=== PATIENT | female | born 1955 | race African-American/Black ===

== ENCOUNTER 2016-06-29 12:39 | Emergency (ER) | payer MEDICARE, MEDICAID ==
[~2016-06-29] VITALS: Ht 160 cm; Wt 78.5 kg
[~2016-06-29 12:39] MED LIST: ACIDOPHILUS1 EAC6 PO; AMBIEN10 MG ORAL; AMBIEN5 MG PO; ATARAX; CARAFATE1 G1 ORAL; DILAUDID4 MG ORAL; GABAPENTIN400 MG ORAL; GUAIFENESIN-CO118 M1 ORAL; HYDRALAZINE HCL50 MG PO; HYDROMORPHONE HC4 M1 PO; LEVOTHYROXINE25 MCG ORAL; LIDOCAINE GEL TOPIC; LORAZEPAM; NIACIN PO; NITROSTAT0.4 M1 SL; NKM; NORCO 10/3251 EA ORAL; OMEPRAZOLE20 M3 PO; OMEPRAZOLE40 M1 ORAL; OXYCODONE; OXYCONTIN; OXYCONTIN10 MG ORAL; PHENERGAN6.25 MG/5 ORAL; SERTRALINE HCL100 MG PO; SILVADENE20 GM TOPIC; SUCRALFATE1 GM PO; VENTOLIN HFA18 GM INH; VITAMIN B COMP1 EAC5 PO; VITAMIN D PO; ZOFRAN4 MG ORAL; ZOLOFT; ZYPREXA10 MG ORAL
[2016-06-29 13:06] VITALS: BP 112/62
[2016-06-29] MEDS ORDERED: LORazepam 1mg tab ORAL ONE (13:30)
[2016-06-29] MEDS ORDERED: Ondansetron ODT 8mg tab ORAL ONE (13:30)
[2016-06-29] MEDS ORDERED: DiphenhydrAMINE 50mg/ml Inj IVP ONE (14:00)
[2016-06-29] MEDS ORDERED: Metoclopramide 10mg/2ml Inj IVP ONE (14:00)
[2016-06-29 15:03] LABS: MEAN CORPUSCULAR HGB CONC 31.5 G/DL (32.0-36.0); MEAN CORPUSCULAR VOLUME 92 FL (80-99); MEAN PLATELET VOLUME 7.9 FL (6.5-10.1); PLATELET COUNT 222 K/UL (150-450); RED BLOOD COUNT 4.82 M/UL (4.20-5.40); RED CELL DISTRIBUTION WIDTH 11.6 % (11.6-14.8); WHITE BLOOD COUNT 4.2 K/UL (4.8-10.8)
--- NOTE | 2016-06-29 15:11 | Emergency Room Report ---
History of Present Illness General Chief Complaint: Headache Source: Patient Present Illness HPI 61-year-old female complains of headache and left-sided body pain upon waking up this morning approximately 5 hours ago. Associated symptoms include left- sided headache left-sided arm and left-sided leg pain but has no provoking or relieving factors. Patient has history of stroke with left-sided deficits and was brought in by ambulance. Patient's baseline is unknown. Patient states that pain is currently 10 out of 10 associated with nausea photophobia in addition to left-sided body pain and is requesting Dilaudid. Patient states she has no known history of migraine. Patient takes by mouth overmedication regularly for her pain that's chronic and has no other physical complaints. Patient also complains of leg wound to left LE x 2 weeks. States she scraped it and over the past 3 days has become red and tender to touch w/o discharge. No provoking or relieving factors and is not taking OTC medications. Allergies: Coded Allergies: IBUPROFEN (Verified Allergy, Unknown, 12/05/12) GI UPSET LEVOFLOXACIN (Verified Allergy, Unknown, Hives, 12/05/12) SULFAMETHOXAZOLE (Verified Allergy, Unknown, Hives, 12/05/12) TRIMETHOPRIM (Verified Allergy, Unknown, Hives, 12/05/12) LATEX (Verified Adverse Reaction, Mild, Rash, 08/29/12) MORPHINE (Verified Adverse Reaction, Mild, 12/05/12) EXTREME NAUSEA Uncoded Allergies: CONTRAST DYE (Allergy, Mild, Itching, 08/29/12) Patient History Past Medical History: see triage record Pertinent Family History: unable to obtain Last Menstrual Period: na Reviewed Nursing Documentation: PMH: Agreed, PSxH: Agreed Nursing Documentation-PMH Past Medical History: No History, Except For Hx Hypertension: Yes - RHEUMATOID ARTHRITIS, FIBROMYALGIA Hx Asthma: Yes Hx Cancer: Yes - BREAST 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) Hx Neurological Problems: No Review of Systems All Other Systems: negative except mentioned in HPI Physical Exam Vital Signs Date Time Temp Pulse Resp B/P Pulse Ox O2 Delivery O2 Flow Rate FiO2 06/29/16 12:57 98.6 88 16 112/62 98 Room Air Sp02 EP Interpretation: reviewed, normal General Appearance: no apparent distress, alert, GCS 15, non-toxic Head: normocephalic, atraumatic Eyes: bilateral eye EOMI, bilateral eye PERRL, bilateral eye normal inspection ENT: hearing grossly normal, normal pharynx, no angioedema, normal voice, TMs + canals normal, uvula midline Neck: full range of motion, supple/symm/no masses Respiratory: chest non-tender, lungs clear, normal breath sounds, speaking full sentences Cardiovascular #1: regular rate, rhythm, no edema Cardiovascular #2: 2+ carotid (R), 2+ carotid (L), 2+ radial (R), 2+ radial (L) Gastrointestinal: non tender, soft, non-distended, no guarding, no rebound Rectal: deferred Genitourinary: no CVA tenderness Musculoskeletal: back normal, gait/station normal, normal range of motion, non- tender Neurologic: alert, oriented x3, responsive, laundry helper III-XII nml as tested - left sided facial deficit, motor strength/tone normal, DTRs symmetric, sensory intact , normal gait, speech normal, no pronator, facial droop, motor weakness Psychiatric: judgement/insight normal, memory normal, no suicidal/homicidal ideation, anxious Reflexes: 3+ knee (R), 3+ knee (L) Skin: normal color, no rash, warm/dry, well hydrated, abrasions - Abraision to left leg with scabbing present with local erythema, tenderness and induration w/ o discharge, drainage or fluculent mass. Lymphatic: no adenopathy Medical Decision Making PA Attestation Dr. Kent is my supervising physician with whom patient management has been discussed with. Diagnostic Impression: Primary Impression: Headache Qualified Codes: G44.89 - Other headache syndrome Additional Impression: Wound cellulitis ER Course Pt. presents to the ED c/o TORIBIO Ddx considered but are not limited to Migraine, Tension TORIBIO, CVA, meningitis, sub arachnoid hemorrhage Vital signs: are WNL, pt. is afebrile H&PE are most consistent with Unspecified TORIBIO, Likely migraine ORDERS: CBC, CMP, CT scan Head, Phenergan, Zofran, Ativan, and Benadryl ED INTERVENTIONS: none required at this time. DISCHARGE: At this time pt. is stable for d/c to home. Will provide printed patient care instructions, and any necessary prescriptions. Care plan and follow up instructions have been discussed with the patient prior to discharge. Laboratory Tests Test 06/29/16 14:35 White Blood Count 4.2 K/UL (4.8-10.8) L Red Blood Count 4.82 M/UL (4.20-5.40) Hemoglobin 14.0 G/DL (12.0-16.0) Hematocrit 44.4 % (37.0-47.0) Mean Corpuscular Volume 92 FL (80-99) Mean Corpuscular Hemoglobin 29.0 PG (27.0-31.0) Mean Corpuscular Hemoglobin Concent 31.5 G/DL (32.0-36.0) L Red Cell Distribution Width 11.6 % (11.6-14.8) Platelet Count 222 K/UL (150-450) Mean Platelet Volume 7.9 FL (6.5-10.1) Neutrophils (%) (Auto) % (45.0-75.0) Lymphocytes (%) (Auto) % (20.0-45.0) Monocytes (%) (Auto) % (1.0-10.0) Eosinophils (%) (Auto) % (0.0-3.0) Basophils (%) (Auto) % (0.0-2.0) Differential Total Cells Counted 100 Neutrophils % (Manual) 38 % (45-75) L Lymphocytes % (Manual) 55 % (20-45) H Monocytes % (Manual) 7 % (1-10) Eosinophils % (Manual) 0 % (0-3) Basophils % (Manual) 0 % (0-2) Band Neutrophils 0 % (0-8) Platelet Estimate Adequate Platelet Morphology Normal Polychromasia 1+ Hypochromasia 1+ Sodium Level 137 mEQ/L (135-145) Potassium Level 4.0 mEQ/L (3.4-4.9) Chloride Level 97 mEQ/L (98-107) L Carbon Dioxide Level 27 mEQ/L (20-30) Anion Gap 13 (5-15) Blood Urea Nitrogen 11 mg/dL (7-23) Creatinine 0.8 mg/dL (0.5-0.9) Estimate Glomerular Filtration Rate > 60 mL/min (>60) Glucose Level 71 mg/dL (74-106) L Calcium Level 9.2 mg/dL (8.6-10.2) Total Bilirubin 0.3 mg/dL (0.0-1.2) Aspartate Amino Transferase (AST) 56 U/L (5-40) H Alanine Aminotransferase (ALT) 33 U/L (3-33) Alkaline Phosphatase 106 U/L (35-104) H Total Protein 9.4 g/dL (6.6-8.7) H Albumin 3.9 g/dL (3.5-5.2) Globulin 5.5 g/dL Albumin/Globulin Ratio 0.7 (1.0-2.7) L CT/MRI/US Diagnostic Results CT/MRI/US Diagnostic Results : Imaging Test Ordered: CT Head w/o contrast Impression Age related changes, no acute abnormalities. Last Vital Signs Date Time Temp Pulse Resp B/P Pulse Ox O2 Delivery O2 Flow Rate FiO2 06/29/16 12:57 98.6 88 16 112/62 98 Room Air Status: improved Reevaluation Impression Patient is no longer in pain and eating a sandwich at the bedside Disposition: HOME, SELF-CARE Condition: Improved Scripts Sumatriptan Succinate* (IMITREX*) 50 Mg Tablet 50 MG ORAL DAILY PRN MIGRAINE for 7 Days, #9 TAB Prov: DARION CEDEÑO P.A. 06/29/16 Cephalexin* (KEFLEX*) 500 Mg Capsule 500 MG ORAL EVERY 12 HOURS, #14 CAP 0 Refills Prov: DARION CEDEÑO P.A. 06/29/16 DARION CEDEÑO P.A. Jun 29, 2016 15:11
[2016-06-29] MEDS ORDERED: CEPHALEXIN500 MG ORAL (15:13)
[2016-06-29] MEDS ORDERED: IMITREX50 MG ORAL (15:13)
[2016-06-29 15:21] VITALS: BP 107/78
[2016-06-29 15:33] VITALS: BP 107/78
[2016-06-29 15:40] LABS: ALANINE AMINOTRANSFERASE 33 U/L (3-33); ALBUMIN/GLOBULIN RATIO 0.7 (1.0-2.7); ANION GAP 13 (5-15); ASPARTATE AMINO TRANSFERASE 56 U/L (5-40); CALCIUM 9.2 mg/dL (8.6-10.2); CARBON DIOXIDE 27 mEQ/L (20-30); CHLORIDE 97 mEQ/L (98-107); CREATININE 0.8 mg/dL (0.5-0.9); GLOMERULAR FILTRATION RATE > 60 mL/min (>60); HEMOLYSIS 6; SODIUM 137 mEQ/L (135-145); TOTAL PROTEIN 9.4 g/dL (6.6-8.7)
[2016-06-29 16:15] LABS: BAND NEUTROPHILS % (MANUAL) 0 % (0-8); BASOPHILS % (MANUAL) 0 % (0-2); EOSINOPHILS % (MANUAL) 0 % (0-3); LYMPHOCYTES % (MANUAL) 55 % (20-45); NEUTROPHILS % (MANUAL) 38 % (45-75); PLATELET ESTIMATE ADEQUATE; TOTAL CELLS COUNTED 100
[2016-06-29 16:16] LABS: HYPOCHROMASIA 1+; PLATELET MORPHOLOGY NORMAL; POLYCHROMASIA 1+
--- NOTE | 2016-06-30 08:45 | Diagnostic Imaging Report ---
Indication: PAIN headache x3 days Technique: spiral acquisitions obtained through the brain. Angled axial and coronal 5 x 5 mm slices were reconstructed. No IV contrast utilized. Radiation dose was minimized using automated exposure control Total dose length product 1407 mGycm. CTDIvol(s) 70 mGy Comparison: none FINDINGS: No acute hemorrhage or edema. No mass effect or midline shift. There is age-related enlargement of the ventricles and extra axial CSF spaces. There is periventricular deep white matter ischemic change. Normal cheek-white differentiation. Visualized orbits are unremarkable. Visualized sinuses are unremarkable. Intact calvarium. IMPRESSION: Chronic and age-related changes. Negative for acute intracranial bleed or mass effect This agrees with the preliminary interpretation provided overnight by Dr. Burton The CT scanner at [facility] is accredited by the [employer] and the scans are performed using protocols designed to limit radiation exposure to as low as reasonably achievable to attain images of sufficient resolution adequate for diagnostic evaluation
== END 2016-06-29 15:33 | disposition home or self-care (01) ==
LOC: EDBD 12:39 → EMR 15:03
DX: R51 Headache (principal); G44.89 Other headache syndrome; M79.602 Pain in left arm; M79.605 Pain in left leg; Z88.6 Allergy status to analgesic agent; Z88.2 Allergy status to sulfonamides; Z88.5 Allergy status to narcotic agent; Z88.1 Allergy status to other antibiotic agents; Z91.040 Latex allergy status; Z91.09 Other allergy status, other than to drugs and biological substances; I10 Essential (primary) hypertension; M06.9 Rheumatoid arthritis, unspecified; J45.909 Unspecified asthma, uncomplicated; Z85.3 Personal history of malignant neoplasm of breast; Z87.19 Personal history of other diseases of the digestive system; L03.90 Cellulitis, unspecified
CPT/HCPCS: 36415; 70450; 80053; 85007; 85025; 96374; 96375; 99284; J1200; J2765; Q0162